=== PATIENT | male | born 1965 | race Caucasian/White ===

== ENCOUNTER 2023-09-02 01:05 | Emergency (ER) | payer SELFPAY ==
[~2023-09-02] VITALS: Ht 175.3 cm; Wt 156.5 kg
[2023-09-02 01:10] VITALS: BP_SYST 192; PULSE 93; RESP 16; TEMP 98.3; O2SAT 95
== END 2023-09-02 01:20 | disposition left against medical advice (07) ==
LOC: SED 01:05
DX: R73.9 Hyperglycemia, unspecified (principal); Z53.21 Procedure and treatment not carried out due to patient leaving prior to being seen by health care provider
CPT/HCPCS: 99281